=== PATIENT | male | born 2000 | race Caucasian/White ===

== ENCOUNTER 2020-01-10 01:09 | Emergency (ER) | payer OTHER ==
[~2020-01-10] VITALS: Ht 182.9 cm; Wt 68.0 kg
[2020-01-10 01:43] VITALS: BP 154/95
--- NOTE | 2020-01-10 03:06 | NUR ---
Patient discharged to home in stable condition. Written and verbal after care instructions given. Patient verbalizes understanding of instruction.
--- NOTE | 2020-01-10 03:06 | NUR ---
Prescriptions provided and explained to the patient.
== END 2020-01-10 03:11 | disposition home or self-care (01) ==
LOC: ER 01:09
DX: S16.1XXA Strain of muscle, fascia and tendon at neck level, initial encounter (principal); X58.XXXA Exposure to other specified factors, initial encounter; Y93.89 Activity, other specified; Y92.89 Other specified places as the place of occurrence of the external cause; Y99.8 Other external cause status
CPT/HCPCS: 71045-TC

== ENCOUNTER 2020-01-13 21:03 | Emergency (ER) | payer OTHER ==
[~2020-01-13] VITALS: Ht 182.9 cm; Wt 69.9 kg
--- NOTE | 2020-01-13 21:45 | NUR ---
PT BIBS FOR C/O SORETHROAT X 1 WK. PT STATES " I CAN NOT EAT, DRINK OR SWALLOW ANYTHING AND MY HEAD HURTS." PT AAOX4, DENIES SOB, NOT IN RESPIRATORY DISTRESS. VSS". PT CONNECTED TO THE MONITOR AND POX
[2020-01-13] MEDS ORDERED: KETOROLAC TROMETHAMINE INJ 60 MG/2 ML VIAL IM ONE ×2 (22:26→22:30)
[2020-01-13] MEDS ORDERED: DEXAMETHASONE SOD PHOSPHATE 10 MG/ML VIAL ONE (22:26)
[2020-01-13] MEDS ORDERED: DEXAMETHASONE SOD PHOSPHATE 4 MG/ML VIAL IM ONE (22:30)
[2020-01-13 23:16] LABS: BASOPHILS % (AUTO) 0.3 % (0.0-2.0); HEMATOCRIT 50 % (39-51); HEMOGLOBIN 16.7 g/dL (13.5-17.5); LYMPHOCYTES # (AUTO) 0.5 /CMM (0.8-4.8); MEAN CORPUSCULAR HGB CONC 34 g/dl (31.0-36.0); MEAN CORPUSCULAR VOLUME 88 fL (80-96); MONOCYTES # (AUTO) 0.2 /CMM (0.1-1.30); MONOCYTES % (AUTO) 3.2 % (2.0-12.0); NEUTROPHILS # (AUTO) 6.6 /CMM (1.8-8.9); NEUTROPHILS % (AUTO) 89.5 % (43.0-81.0); PLATELET COUNT (AUTO) 271 /CMM (150-450); RED BLOOD CELL COUNT(AUTO) 5.68 MIL/uL (4.5-6.0); WHITE BLOOD COUNT (AUTO) 7.4 K/uL (4.3-11.0)
--- NOTE | 2020-01-13 23:24 | NUR ---
LISBET (FRIEND/RIDE) CONTACT INFORMATION: [phone]
[2020-01-13] MEDS ORDERED: IV NS 0.9% 250 ML IV ONE (23:27)
[2020-01-13] MEDS ORDERED: CT SWABBABLE VALVE TRANS SET 1 EA INFUS.SET MC ONE (23:27)
[2020-01-13] MEDS ORDERED: IOHEXOL-300 100 ML VIAL IV ONE (23:27)
[2020-01-13 23:32] LABS: CALCIUM, SERUM 9.4 mg/dL (8.5-10.1); CREATININE 0.9 mg/dL (0.6-1.3); POTASSIUM 4.5 mmol/L (3.5-5.1)
--- NOTE | 2020-01-14 00:18 | NUR ---
PT TAKEN TO CT
--- NOTE | 2020-01-14 00:30 | NUR ---
PT BACK FROM CT
[2020-01-14 00:51] LABS: MONOTEST NEGATIVE (NEGATIVE)
[2020-01-14 01:28] VITALS: BP 128/74
--- NOTE | 2020-01-14 01:28 | NUR ---
Patient discharged to home in stable condition. Written and verbal after care instructions given. Patient verbalizes understanding of instruction.pt. ambulatory with a steady gait
== END 2020-01-14 01:29 | disposition home or self-care (01) ==
LOC: ER 21:04
DX: J02.9 Acute pharyngitis, unspecified (principal)
CPT/HCPCS: 36415; 70491; 80048; 85025; 86308; 96372 ×2; 99285; J1100; J1885; J7050; Q9967

== ENCOUNTER 2020-01-17 23:20 | Emergency (ER) | payer OTHER ==
[~2020-01-17] VITALS: Ht 182.9 cm; Wt 68.9 kg
[2020-01-17 23:29] VITALS: BP 159/95
[2020-01-17] MEDS ORDERED: HYDROCODONE/APAP 5/325MG 1 EACH TABLET ONE (23:40)
[2020-01-18] MEDS ORDERED: HYDROCODONE/APAP 5/325MG 1 EACH TABLET PO ONE
== END 2020-01-17 23:44 | disposition home or self-care (01) ==
LOC: ER 23:22
DX: M79.10 Myalgia, unspecified site (principal); M54.2 Cervicalgia; M54.6 Pain in thoracic spine

== ENCOUNTER 2020-01-24 02:48 | Emergency (ER) | payer OTHER ==
[~2020-01-24] VITALS: Ht 182.9 cm; Wt 66.2 kg
--- NOTE | 2020-01-24 03:30 | NUR ---
PT AMBULATORY TO ER BED 2 C/O SOB "I FEEL LIKE I CANT CATCH MY BREATH, MY THROAT IS DRY & MY JAW IS HURTING." PT APPEARS VERY ANXIOUS, HYPERVENTILATING. PT AOX4 RR EVEN AND UNLABORED. NO SOB NOTED. NO NVD AT THIS TIME. PT PLACED ON MONITOR SEEN BY DR. GALLARDO
[2020-01-24] MEDS ORDERED: DIAZEPAM 5 MG TABLET ONE (03:56)
[2020-01-24] MEDS ORDERED: DIAZEPAM 5 MG TABLET PO ONE (04:00)
[2020-01-24 04:53] VITALS: BP 128/77
--- NOTE | 2020-01-24 04:53 | NUR ---
PT CLEARED FOR DISCHARGED PER DR. GALLARDO. Patient discharged to home in stable condition. Written and verbal after care instructions given. Patient verbalizes understanding of instruction. pt ambulatory with a steady gait. pt instructed not to drive. pt verbalized understanding.
== END 2020-01-24 04:54 | disposition home or self-care (01) ==
LOC: ER 02:48
DX: F41.9 Anxiety disorder, unspecified (principal)
CPT/HCPCS: 71045-TC